=== PATIENT | female | born 1965 | race Caucasian/White ===

== ENCOUNTER 2025-04-12 06:11 | Day surgery (SDC) | payer BC, SELFPAY ==
--- OUTSIDE RECORDS SUMMARY | 2025-03-21 15:51 | XMS_ITS | Continuity of Care Document ---
Author Organization [facility] Address [address] [place] [address] Phone Care Team Providers Care Modeling Manager Name Role Phone Dave Denise MD Unavailable Unavailable Procedures Procedure Date Echo W/stress & Interp Outpatient Hosp J Cv Stress; Phys Supervs Only Cv Stress; Interpt & Reprt Onl 10 Doppler Interpretation OP Hosp 10 Dopplr Echo Color Flow OP Hosp 10 Advance Directives Directive Yes / No Effective Date File Name No Information Encounters Encounter Description Practice Location Reason(s) For Visit Diagnoses Date Provider [facility], [address], [place], [place], [id number], [place] tel:[phone] [facility] No Information Howie Acosta. [facility], [address] [place] [address], [id number], [place]. tel:[phone] Family History Family Member Type Diagnosis Age At Onset No Information Payers Payer name Insurance type Covered green party ID Authoriza tion(s) No Information Social History Type Description Quantity Date Captured Comments Sex Female Smoking Status No Information Chief Complaint And Reason For Visit No Information History Of Present Illness Encounter Date Complaint History Of Prese nt Illness No Information Instructions Date Instruction Additional Infor mation No Information Assessments Type Assessment Date No Information
[2025-04-10 11:28] VITALS: BMI 23.7
[2025-04-12 06:39] VITALS: BMI 22.7
[2025-04-12 06:40] VITALS: BMI 22.7
[2025-04-12] MEDS: Lactated Ringers 1,000 ML 100 ML IVCONT (06:55)
[2025-04-12 07:12] VITALS: BP 110/74; PULSE 70; RESP 16; TEMP 37.2; O2SAT 96
--- NOTE | 2025-04-12 07:20 | HO.ANESPROP2 ---
Documented by User: Cait Loyd NP 04/11/25 09:17 HPI - Anesthesia Eval Consult details Narrative: 59yo F for Colonoscopy [facility] Past Medical History Medical History (Updated 04/12/25 @ 06:46 by Kasie Matthews RN) Colon cancer screening Pituitary adenoma Hyperlipidemia Surgical History Surgical History Hx of augmentation mammoplasty Social History Social History Patient Tobacco Use Status: Never used Tobacco e-Cigarette/Vaping Use: Never Used Have you been hit, kicked, punched, or otherwise hurt by someone within the past year? If so, by whom?: No Are you DNR?: No Advance Directives: No Advance Directives Information Provided: Yes Meds Allergies Allergy/AdvReac Type Severity Reaction Status Date / Time No Known Allergies Allergy Verified 04/12/25 06:44 Home Medications ?Medication ?Instructions ?Recorded ?Confirmed ?Last Taken ?Type multivitamin 1 tab PO DAILY 04/10/25 04/12/25 Unknown History trazodone 50 mg tablet 50 - 100 mg PO BEDTIME PRN Insomnia 04/10/25 04/12/25 Unknown History Exam Height,Weight and Vital Signs: Height 5 ft 6 in Weight 66.678 kg Assessment and Plan Assessment Anesthesia Assessment: Chart Reviewed Documented by User: Fiona Teixeira DO 04/12/25 07:38 [facility] Past Medical History Medical History (Updated 04/12/25 @ 06:46 by Kasie Matthews RN) Colon cancer screening Pituitary adenoma Hyperlipidemia Family History Family history of problems with anesthesia: No Surgical History Surgical History Hx of augmentation mammoplasty History of Problems with Anesthesia: No Social History Social History Patient Tobacco Use Status: Never used Tobacco e-Cigarette/Vaping Use: Never Used Have you been hit, kicked, punched, or otherwise hurt by someone within the past year? If so, by whom?: No Are you DNR?: No Advance Directives: No Advance Directives Information Provided: Yes Meds Allergies Allergy/AdvReac Type Severity Reaction Status Date / Time No Known Allergies Allergy Verified 04/12/25 06:44 Home Medications ?Medication ?Instructions ?Recorded ?Confirmed ?Last Taken ?Type multivitamin 1 tab PO DAILY 04/10/25 04/12/25 Unknown History trazodone 50 mg tablet 50 - 100 mg PO BEDTIME PRN Insomnia 04/10/25 04/12/25 Unknown History Exam Exam Date and Time: 04/12/25 0720 Height,Weight and Vital Signs: Height 5 ft 6 in Weight 66.678 kg Vital Signs Temperature 99.0 F 04/12/25 07:12 Pulse Rate 70 04/12/25 07:12 Respiratory Rate 16 04/12/25 07:12 Blood Pressure 110/74 04/12/25 07:12 Pulse Oximetry 96 04/12/25 07:12 Oxygen Delivery Method Room Air 04/12/25 07:12 Temperature 99.0 F 04/12/25 07:12 Pulse Rate 70 04/12/25 07:12 Respiratory Rate 16 04/12/25 07:12 Blood Pressure 110/74 04/12/25 07:12 Pulse Oximetry 96 04/12/25 07:12 Oxygen Delivery Method Room Air 04/12/25 07:12 Airway Mallampati Class: I TM Dist: >3cm Neck ROM: Full Loose/Missing/Broken Teeth: No (patient denies any loose or broken teeth) Heart: S1S2 Lungs: CTAB Assessment and Plan Assessment Anesthesia Assessment: Anesthesia Plan Discussed and Chart Reviewed Final Anesthetic Review Family History of Problems with Anesthesia: No History of Problems with Anesthesia: No NPO: Yes ASA Class: I Final Preanesthetic Review: No Changes in Pt Med Stat, Meds/Allgs Chart Reviewed, Consent Obtained/Reviewed and Anes Risks/Benef Reviewed Patient Risk: Low Procedure Risk: Low Anesthetic Plan Anesthetic Plan: MAC: and Agree w/ Assess. and Plan Disposition: Standard PACU
--- NOTE | 2025-04-12 07:33 | P.HPSUR_ITS ---
Pre-Procedural Eval Section A - 24 Hr Update-Section A only Date of Service: 04/12/25 Section B - Complete if H&P > 30 days Chief Complaint: Encounter for screening for malignant neoplasm of Details of Present Illness: see H&P no changes Relevant Family History (Specify if Yes): No Relevant Social History: None Present Medications: see Short Stay Collaborative assessment Medical History: No relevant PMH History of Previous Operations: No relevant previous surgery Allergies: Allergies Allergy/AdvReac Type Severity Reaction Status Date / Time No Known Allergies Allergy Verified 04/12/25 06:44 Review of Systems Sugical H&P ROS: Negative: Constitution, Cardiovascular, Respiratory, Neurological, Psychiatric, Hem-Onc, Allergic/Immunologic, Gastrointestinal, Genitourinary, Musculoskeletal, Integumentary, Endocrine and Eyes/Ears/No se/Throat Exam Surgical H&P Exam: Normal: HEENT, Normal: Heart, Normal: Lungs, Normal: Extremities, Normal: Abdomen, Normal: Skin and Normal: Neurological Plan Diagnosis/Plan: Unchanged I have reviewed the history and physical and performed a pertinent physical examination on my patient. No changes have occurred unless specified. Time Spent With Patient Time: Total time managing care of this patient today ____ minutes.
[2025-04-12 08:18] VITALS: BP 80/54; PULSE 88; RESP 12; TEMP 36.2; O2SAT 98
[2025-04-12 08:33] VITALS: BP 101/71; PULSE 75; RESP 16; TEMP 36.2; O2SAT 96
--- NOTE | 2025-04-12 09:16 | OP_ITS ---
DATE OF SERVICE: 04/12/2025 SURGEON: Isidro Trejo MD INDICATIONS: Colon cancer screening. PREOPERATIVE DIAGNOSIS: POSTOPERATIVE DIAGNOSIS: PROCEDURE PERFORMED: Colonoscopy to the cecum with biopsy. ESTIMATED BLOOD LOSS: COMPLICATIONS: ANESTHESIA: Monitored anesthesia care. ASSISTANTS: SPECIMENS: PROCEDURE DESCRIPTION: History and physical was performed. The risks and benefits of the procedure were explained to the patient. Informed consent was obtained. The patient was placed in the left lateral decubitus position. A digital rectal exam was performed and was found to be normal. The Olympus pediatric video colonoscope was introduced in the rectum and advanced to the cecum. The cecum was identified by transillumination, palpation, and identification of ileocecal valve. Examination was performed. The scope was removed. She tolerated the procedure well and was returned to Recovery in stable condition. FINDINGS: The terminal ileum was not examined. The visualized colonic mucosa was within normal limits. Quality of prep was good. In the cecum, there was a less than 5 mm sessile polyp, which was removed with biopsy forceps. No other polyps were identified. Retroflexed examination showed some internal hemorrhoids. IMPRESSION: Colon polyp. RECOMMENDATION: Followup the biopsy results. MD GARO Lowery/MARIA DEL ROSARIO / [id number]
== END 2025-04-12 08:48 | disposition home or self-care (01) ==
PROVIDERS: PCP Internal Medicine; Visit Provider Internal Medicine Gastroenterology
PROC: 0DJD8ZZ Inspection of Lower Intestinal Tract, Via Natural or Artificial Opening Endoscopic (ICD-10-PCS; CPT 45378; principal; 2025-04-12 07:30)
DX: Z12.11 Encounter for screening for malignant neoplasm of colon (principal); K63.5 Polyp of colon; K64.8 Other hemorrhoids; E78.5 Hyperlipidemia, unspecified; D35.2 Benign neoplasm of pituitary gland; Z79.899 Other long term (current) drug therapy
CPT/HCPCS: 45380; 88305; J2003; J2704